=== PATIENT | female | born 1970 | race Caucasian/White ===

== ENCOUNTER 2016-11-15 22:44 | Emergency (ER) | payer BC ==
[~2016-11-15 22:44] MED LIST: AMBEREN; CALCIUM OYSTER500 MG; CARAFATE 11 GM/10 M1 GT; CARAFATE1 GM/10 ML PO; ELMIRON PO; HYDROXYZINE; LISINOPRIL10 MG; MAALOX525 MG/15; NEXIUM 40 MG CA40 M1 PO; NORVASC 5 MG TAB5 MG PO; ORTHO TRI-CYCL1 EACH PO; PEPCID AC20 M1 PO; PROTONIX40 MG PO; ZOLOFT 50 MG TA50 M1
[2016-11-15 23:44] LABS: URINE BILIRUBIN NEGATIVE (Negative); URINE BLOOD 1+ (Negative); URINE COLOR YELLOW; URINE GLUCOSE-RANDOM* NEGATIVE (Negative); URINE KETONES NEGATIVE (Negative); URINE NITRITE NEGATIVE (Negative); URINE PROTEIN (DIPSTICK) NEGATIVE (Negative); URINE SPECIFIC GRAVITY <= 1.005 (1.003-1.035); URINE UROBILINOGEN 0.2 E.U./dl (0.2-1.0)
[2016-11-15 23:58] LABS: BACTERIA 1-9 Few /HPF (None Seen); CASTS None Seen /LPF (None Seen); SQUAMOUS >10 Many /LPF (0-3); URINE RBC 0-2 Rare /HPF (0-2); URINE WBC None Seen /HPF (0-5)
[2016-11-15 23:59] LABS: CRYSTALS None Seen /LPF (None Seen)
[2016-11-16 01:12] VITALS: BP 148/95
== END 2016-11-16 01:13 | disposition left against medical advice (07) ==
LOC: ER 22:44
PROVIDERS: Nurse Practitioner Family
DX: R10.9 Unspecified abdominal pain (principal)